=== PATIENT | female | born 2000 | race Caucasian/White ===

== ENCOUNTER 2021-11-14 16:12 | Inpatient (IN) | payer OTHER ==
[2021-11-14] MEDS ORDERED: Nalbuphine HCl 10 MG/ 1ML Amp IVPUSH PRN (16:27)
[2021-11-14] MEDS ORDERED: Oxytocin/Lactated Ringers 10 UNIT/1,000 ML BAG IV SCH (16:30)
[2021-11-14] MEDS: Misoprostol 25 MCG (1/4 of 100 MCG) Tab VAG SCH ×2 (17:03→21:15)
[2021-11-15] MEDS ORDERED: Ondansetron 4 MG/2 ML SDV IVPUSH ONE (00:37)
[2021-11-15] MEDS ORDERED: Zolpidem 5 MG Tab PO ONE (00:38)
[2021-11-15] MEDS: Lactated Ringers 1,000 ML IV SCH ×3 (03:39→05:52)
[2021-11-15] MEDS ORDERED: diphenhydrAMINE 50 MG/ML SDV IVPUSH PRN (03:55)
[2021-11-15] MEDS ORDERED: ePHEDrine 50 MG/ML SDV IVPUSH PRN (03:55)
[2021-11-15] MEDS ORDERED: fentaNYL 100 MCG/2 ML SDV EPIDUR PRN (03:55)
[2021-11-15] MEDS ORDERED: Bupivacaine/fentaNYL/NS 100 ML Bag EPIDUR PRN (03:55)
[2021-11-15] MEDS: Misoprostol 25 MCG (1/4 of 100 MCG) Tab VAG SCH (05:04)
[2021-11-15] MEDS ORDERED: Bupivacaine 0.25% 10 ML SDV ONE (05:33)
[2021-11-15] MEDS ORDERED: Oxytocin/Lactated Ringers 10 UNIT/1,000 ML BAG IV SCH (08:00)
[2021-11-15] MEDS ORDERED: Acetaminophen 325 MG Tab PO ONE (11:32)
[2021-11-15] MEDS: Ampicillin 2 GM in Sodium Chloride 0.9% 100 ML IV SCH ×2 (11:47→17:55)
[2021-11-15] MEDS ORDERED: Gentamicin 420 MG in Sodium Chloride 0.9% 100 ML IV ONE (12:00)
[2021-11-15] MEDS ORDERED: Misoprostol 200 MCG Tab PO PRN (13:10)
[2021-11-15] MEDS ORDERED: Methylergonovine 0.2 MG/1 ML Amp IM PRN (14:00)
[2021-11-15] MEDS ORDERED: Benzocaine/Menthol 20%-0.5% Spray 78 GM Cannister TOP PRN (15:41)
[2021-11-15] MEDS ORDERED: Witch Hazel Medicated Pads 40/Jar TOP PRN (15:41)
[2021-11-15] MEDS: Ibuprofen 600 MG Tab PO PRN ×2 (16:34→23:00)
[2021-11-15] MEDS: Acetaminophen 325 MG Tab PO PRN (23:00)
[2021-11-16] MEDS: Ibuprofen 600 MG Tab PO PRN ×2 (06:13→16:56)
[2021-11-16] MEDS: Docusate Sodium 100 MG Cap PO PRN (09:12)
[2021-11-16] MEDS: Sertraline 50 MG Tab PO SCH (09:12)
[2021-11-16] MEDS: Acetaminophen 325 MG Tab PO PRN ×2 (09:12→22:35)
[2021-11-17] MEDS: Ibuprofen 600 MG Tab PO PRN (08:32)
[2021-11-17] MEDS: Docusate Sodium 100 MG Cap PO PRN (08:33)
[2021-11-17] MEDS: Sertraline 50 MG Tab PO SCH (08:34)
== END 2021-11-17 12:15 | disposition home or self-care (01) | DRG 805 ==
LOC: JD.OBCHECK 16:12 → JD.OB 16:19 → JD.OBCHECK 16:27 → OBSVTOIN 11-15 13:57 → JD.OB 11-15 13:58
PROVIDERS: ADMIT Obstetrics & Gynecology; ATTEND Obstetrics & Gynecology
PROC: 10E0XZZ Delivery of Products of Conception, External Approach (ICD-10-PCS; principal; 2021-11-15)
PROC: 0KQM0ZZ Repair Perineum Muscle, Open Approach (ICD-10-PCS; 2021-11-15)
PROC: 3E0P7VZ Introduction of Hormone into Female Reproductive, Via Natural or Artificial Opening (ICD-10-PCS; 2021-11-15)
PROC: 10907ZC Drainage of Amniotic Fluid, Therapeutic from Products of Conception, Via Natural or Artificial Opening (ICD-10-PCS; 2021-11-15)
PROC: 3E0R3BZ Introduction of Anesthetic Agent into Spinal Canal, Percutaneous Approach (ICD-10-PCS; 2021-11-15)
PROC: 4A1HXCZ Monitoring of Products of Conception, Cardiac Rate, External Approach (ICD-10-PCS; 2021-11-15)
DX: O13.4 Gestational [pregnancy-induced] hypertension without significant proteinuria, complicating childbirth (principal); O41.1230 Chorioamnionitis, third trimester, not applicable or unspecified; Z37.0 Single live birth; D62 Acute posthemorrhagic anemia; Z3A.40 40 weeks gestation of pregnancy; O70.1 Second degree perineal laceration during delivery; O72.1 Other immediate postpartum hemorrhage; O99.02 Anemia complicating childbirth
CPT/HCPCS: 01967; 36415; 51701; 51702; 59025; 59409; 82565; 82570; 83615; 84156; 84450; 84460; 84520; 84550; 85025; 85027; 86592; 86850; 86900; 86901; A9270-GY; J0290; J1580; J2210; J2405; J2590; J3010; J3490; J7120